=== PATIENT | female | born 2000 | race Caucasian/White ===

== ENCOUNTER 2018-11-25 08:37 | Emergency (ER) | payer BC ==
--- NOTE | 2018-11-25 08:44 | ER Report ---
History and Physical Time Seen By MD: 08:44 HPI/ROS CHIEF COMPLAINT: Lower abdominal pain HISTORY OF PRESENT ILLNESS: Patient is a 18-year-old female here with complaints of lower abdominal pain which started yesterday evening. Patient reports waking up with severe bilateral and suprapubic lower abdominal pain which has been sharp and stabbing, constant since this morning. Patient denies prior history of abdominal surgeries, fevers, chills. She has been able to keep down food and fluids. Patient does have some nausea at time of evaluation. Patient is hemodynamically stable at time of evaluation. She is markedly tender in the lower abdominal distribution. No rebound or guarding present. REVIEW OF SYSTEMS: Constitutional: No fever, no chills. Eyes: No discharge. ENT: No sore throat. Cardiovascular: No chest pain, no palpitations. Respiratory: No cough, no shortness of breath. Gastrointestinal: + lower abdominal pain, no vomiting, + nausea. Genitourinary: No hematuria, dysuria or discharge Musculoskeletal: No back pain. Skin: No rashes. Neurological: No headache. Allergies: Coded Allergies: No Known Drug Allergies (Unverified , 11/25/18) Home Meds Active Scripts Ondansetron 4 Mg Odt (ONDANSETRON 4 MG ODT) 4 Mg Tab.rapdis, 4 MG PO Q4-6H PRN for NAUSEA, #30 TAB Prov:KEE GOODE DO 11/25/18 Reported Medications Etonogestrel (NEXPLANON) 68 Mg Implant, 68 MG SQ DIRECTED, IMPLANT 11/25/18 Constitutional Vital Sign - Last 24 Hours 11/25/18 11/25/18 11/25/18 11/25/18 08:41 09:00 09:04 09:15 Temp 98.1 Pulse 100 83 Resp 24 B/P (MAP) 136/100 ???/??? (5365) 115/60 (78) 110/77 (88) Pulse Ox 97 99 O2 Delivery Room Air 11/25/18 11/25/18 11/25/18 11/25/18 09:30 10:07 10:15 10:30 Pulse 78 B/P (MAP) 111/71 (84) 116/72 (87) 115/68 (84) 102/65 (77) Pulse Ox 94 11/25/18 11/25/18 11/25/18 5/9/19 10:45 11:00 11:15 11:25 Pulse 73 B/P (MAP) 95/65 (75) 108/61 (77) 111/63 (79) Pulse Ox 97 O2 Delivery Room Air Physical Exam General Appearance: The patient is alert, has no immediate need for airway protection and no signs of toxicity. Uncomfortable appearing, tearful Eyes: Pupils equal and round no pallor or injection. ENT, Mouth: Mucous membranes are moist. Respiratory: There are no retractions, lungs are clear to auscultation. Cardiovascular: Regular rate and rhythm. Gastrointestinal: + lower abdominal tenderness on palpation, no rebound or guarding or distension. Neurological: No focal findings Skin: Warm and dry, no rashes. Musculoskeletal: Neck is supple non tender. Extremities are nontender, nonswollen and have full range of motion. DIFFERENTIAL DIAGNOSIS: After history and physical exam differential diagnosis was considered for abdominal pain including but not limited to appendicitis, cholecystitis, gastritis and urinary tract infection. Medical Decision Making Data Points Result Diagram: 11/25/18 0845 11/25/18 0845 Laboratory Hematology Test 11/25/18 08:45 11/25/18 08:52 Red Blood Count 5.16 M/uL (4.17-5.56) Mean Corpuscular Volume 86.7 fL (80.0-96.0) Mean Corpuscular Hemoglobin 28.9 pg (26.0-33.0) Mean Corpuscular Hemoglobin Concent 33.3 g/dL (32.0-36.0) Red Cell Distribution Width 13.6 % (11.5-14.5) Mean Platelet Volume 8.5 fL (7.2-11.1) Neutrophils (%) (Auto) 53.0 % (39.4-72.5) Lymphocytes (%) (Auto) 31.7 % (17.6-49.6) Monocytes (%) (Auto) 7.9 % (4.1-12.4) Eosinophils (%) (Auto) 7.1 % (0.4-6.7) Basophils (%) (Auto) 0.3 % (0.3-1.4) Nucleated RBC Relative Count (auto) 0.0 /100WBC Neutrophils # (Auto) 6.1 K/uL (2.0-7.4) Lymphocytes # (Auto) 3.6 K/uL (1.3-3.6) Monocytes # (Auto) 0.9 K/uL (0.3-1.0) Eosinophils # (Auto) 0.8 K/uL (0.0-0.5) Basophils # (Auto) 0.0 K/uL (0.0-0.1) Nucleated RBC Absolute Count (auto) 0.00 K/uL Sodium Level 138 mmol/L (137-145) Potassium Level 4.0 mmol/L (3.5-5.0) Chloride Level 105 mmol/L (98-107) Carbon Dioxide Level 23 mmol/L (22-31) Blood Urea Nitrogen 17 mg/dl (7-18) Creatinine 0.80 mg/dl (0.52-1.04) Glomerular Filtration Rate Calc > 60.0 Random Glucose 95 mg/dl (75-110) Calcium Level 9.3 mg/dl (8.4-10.2) Total Bilirubin 0.4 mg/dl (0.2-1.3) Aspartate Amino Transf (AST/SGOT) 39 U/L (0-35) Alanine Aminotransferase (ALT/SGPT) 28 U/L (0-56) Alkaline Phosphatase 63 U/L (0-126) C-Reactive Protein < 0.5 mg/dl (<1.0) Total Protein 6.7 g/dl (6.3-8.2) Albumin 4.2 g/dl (3.5-5.0) Lipase 199 U/L (23-300) Human Chorionic Gonadotropin, Qual Negative (NEGATIVE) Urine Color Yellow Urine Clarity Slightly-cloudy Urine pH 5.0 pH (4.8-9.5) Urine Specific [place] 1.026 Urine Protein Negative mg/dL (NEGATIVE) Urine Glucose (UA) Negative mg/dL (NEGATIVE) Urine Ketones Negative mg/dL (NEGATIVE) Urine Blood Negative (NEGATIVE) Urine Nitrite Negative (NEGATIVE) Urine Bilirubin Negative (NEGATIVE) Urine Urobilinogen Negative mg/dL (0.2-1.9) Urine Leukocyte Esterase Negative (NEGATIVE) Urine RBC 2 /HPF (0-2/HPF) Urine WBC 1 /HPF (0-5/HPF) Urine Squamous Epithelial Cells Many /LPF (</=FEW) Urine Bacteria Few /HPF (NONE-FEW) Urine Mucus Few /HPF (NONE-FEW) Chemistry Test 11/25/18 08:45 11/25/18 08:52 White Blood Count 11.4 k/uL (4.5-11.0) Red Blood Count 5.16 M/uL (4.17-5.56) Hemoglobin 14.9 g/dL (12.0-16.0) Hematocrit 44.7 % (34.0-47.0) Mean Corpuscular Volume 86.7 fL (80.0-96.0) Mean Corpuscular Hemoglobin 28.9 pg (26.0-33.0) Mean Corpuscular Hemoglobin Concent 33.3 g/dL (32.0-36.0) Red Cell Distribution Width 13.6 % (11.5-14.5) Platelet Count 342 K/uL (150-450) Mean Platelet Volume 8.5 fL (7.2-11.1) Neutrophils (%) (Auto) 53.0 % (39.4-72.5) Lymphocytes (%) (Auto) 31.7 % (17.6-49.6) Monocytes (%) (Auto) 7.9 % (4.1-12.4) Eosinophils (%) (Auto) 7.1 % (0.4-6.7) Basophils (%) (Auto) 0.3 % (0.3-1.4) Nucleated RBC Relative Count (auto) 0.0 /100WBC Neutrophils # (Auto) 6.1 K/uL (2.0-7.4) Lymphocytes # (Auto) 3.6 K/uL (1.3-3.6) Monocytes # (Auto) 0.9 K/uL (0.3-1.0) Eosinophils # (Auto) 0.8 K/uL (0.0-0.5) Basophils # (Auto) 0.0 K/uL (0.0-0.1) Nucleated RBC Absolute Count (auto) 0.00 K/uL Glomerular Filtration Rate Calc > 60.0 Calcium Level 9.3 mg/dl (8.4-10.2) Total Bilirubin 0.4 mg/dl (0.2-1.3) Aspartate Amino Transf (AST/SGOT) 39 U/L (0-35) Alanine Aminotransferase (ALT/SGPT) 28 U/L (0-56) Alkaline Phosphatase 63 U/L (0-126) C-Reactive Protein < 0.5 mg/dl (<1.0) Total Protein 6.7 g/dl (6.3-8.2) Albumin 4.2 g/dl (3.5-5.0) Lipase 199 U/L (23-300) Human Chorionic Gonadotropin, Qual Negative (NEGATIVE) Urine Color Yellow Urine Clarity Slightly-cloudy Urine pH 5.0 pH (4.8-9.5) Urine Specific [place] 1.026 Urine Protein Negative mg/dL (NEGATIVE) Urine Glucose (UA) Negative mg/dL (NEGATIVE) Urine Ketones Negative mg/dL (NEGATIVE) Urine Blood Negative (NEGATIVE) Urine Nitrite Negative (NEGATIVE) Urine Bilirubin Negative (NEGATIVE) Urine Urobilinogen Negative mg/dL (0.2-1.9) Urine Leukocyte Esterase Negative (NEGATIVE) Urine RBC 2 /HPF (0-2/HPF) Urine WBC 1 /HPF (0-5/HPF) Urine Squamous Epithelial Cells Many /LPF (</=FEW) Urine Bacteria Few /HPF (NONE-FEW) Urine Mucus Few /HPF (NONE-FEW) Urinalysis Test 11/25/18 08:52 Urine Color Yellow Urine Clarity Slightly-cloudy Urine pH 5.0 pH (4.8-9.5) Urine Specific [place] 1.026 Urine Protein Negative mg/dL (NEGATIVE) Urine Glucose (UA) Negative mg/dL (NEGATIVE) Urine Ketones Negative mg/dL (NEGATIVE) Urine Blood Negative (NEGATIVE) Urine Nitrite Negative (NEGATIVE) Urine Bilirubin Negative (NEGATIVE) Urine Urobilinogen Negative mg/dL (0.2-1.9) Urine Leukocyte Esterase Negative (NEGATIVE) Urine RBC 2 /HPF (0-2/HPF) Urine WBC 1 /HPF (0-5/HPF) Urine Squamous Epithelial Cells Many /LPF (</=FEW) Urine Bacteria Few /HPF (NONE-FEW) Urine Mucus Few /HPF (NONE-FEW) EKG/Imaging Imaging Please see radiology ultrasound reports ED Course/Re-evaluation ED Course Patient is a 18-year-old female here with complaints of lower abdominal pain since yesterday evening, waking the patient up this morning with sharp stabbing pain. Labs were unremarkable with a mild leukocytosis of 11,000, beta hCG negative, CRP negative, urinalysis noninfectious. Ultrasound of the right lower quadrant identified a normal-appearing appendix, transvaginal non-OB ultrasound did identify a free fluid in the right pelvis, right ovarian cyst consistent with ovarian cyst rupture likely being the cause of her pain. Patient was given Toradol and Zofran for symptomatic relief. Patient was given scripts for Zofran and advised to take naproxen as needed for pain control. Was PCP follow-up recommended. OB follow-up recommended if pain persists. Return precautions were provided. Patient was updated regarding these findings. Decision to Disposition Date: November 25, 2018 Decision to Disposition Time: 10:44 Depart Departure Latest Vital Signs Vital Signs Date Time Temp Pulse Resp B/P (MAP) Pulse Ox O2 Delivery O2 Flow Rate FiO2 11/25/18 11:25 73 97 Room Air 11/25/18 11:15 111/63 (79) 11/25/18 08:41 98.1 24 Impression: Primary Impression: Abdominal pain Additional Impression: Ovarian cyst Condition: Improved Disposition: HOME OR SELF-CARE New Scripts Ondansetron 4 Mg Odt (ONDANSETRON 4 MG ODT) 4 Mg Tab.rapdis 4 MG PO Q4-6H PRN for NAUSEA, #30 TAB Prov: KEE GOODE DO 11/25/18 Patient Instructions: Abdominal Pain (ED) Additional Instructions: Please drink plenty of water. You may take Zofran 1 tablet every 4-6 hours as needed for nausea and vomiting. You may take up to 500 mg of naproxen twice daily as needed for pain control. Please follow-up with your family doctor. Please return promptly if you develop worsening pain, fevers, blood in the stools or urine, inability to keep down food or fluids. Problem Qualifiers KEE GOODE DO November 25, 2018 08:44
[2018-11-25] MEDS ORDERED: ETON68IM SQ (08:45)
[2018-11-25] MEDS ORDERED: KETOROLAC 30 MG/ML VIAL IVP ONE (09:00)
[2018-11-25] MEDS ORDERED: ONDANSETRON 4 MG/2 ML VIAL IVP ONE (09:00)
[2018-11-25 09:07] LABS: PLATELET COUNT, AUTOMATED 342 K/uL (150-450)
[2018-11-25] MEDS ORDERED: ONDA4TAB9 PO (10:47)
--- NOTE | 2018-11-25 11:01 | RADIOLOGY IMAGING REPORT ---
FACILITY: [facility] [place] PATIENT NAME: Syl Odell : 2000 MR: [id number] V: [id number] EXAM DATE: ORDERING PHYSICIAN: KEE GOODE TECHNOLOGIST: Location: [facility] Patient: Syl Odell : 2000 Visit/Account:[id number] Date of Sevice: 11/25/2018 RIGHT LOWER QUADRANT, TRANSVAGINAL NON-OB INDICATION: Pain, Lower abd pain COMPARISON: None Available FINDINGS: Uterus measures 7.6 x 4.5 x 5.1 cm and is homogeneous in echotexture. No mass is identified. Double wall endometrial stripe measures 5.4 mm and is homogeneous There is a moderate amount of free fluid in the cul-de-sac. Urinary bladder is empty. Pelvic vessels appear unremarkable on this examination. Right ovary measures 4.0 x 1.8 x 3.1 cm and shows normal blood flow and contains an oval unilocular c yst measuring 3.2 cm Left ovary measures 3.0 x 1.6 x 3.8 cm and shows normal blood flow and contains a dominant follicle Within the right lower quadrant, the appendix is identified and is normal in appearance measuring 6 m m. The appendix is compressible with normal vascularity. No pericecal fluid is identified. IMPRESSION: 1. There is a 3.2 cm right ovarian cyst with moderate amount of fluid within the pelvis, question ru ptured cyst 2. Normal-appearing appendix Report Dictated By: Conor Weir at 11/25/2018 10:53 AM Report E-Signed By: Conor Weir at 11/25/2018 10:57 AM WSN:[email or web address]
--- NOTE | 2018-11-25 11:02 | RADIOLOGY IMAGING REPORT ---
FACILITY: [facility] PATIENT NAME: Syl Odell : 2000 MR: [id number] V: [id number] EXAM DATE: ORDERING PHYSICIAN: KEE GOODE TECHNOLOGIST: [place] [facility] [place] Patient: Syl Odell : 2000 Visit/Account:[id number] Date of Sevice: 11/25/2018 RIGHT LOWER QUADRANT, TRANSVAGINAL NON-OB INDICATION: Pain, Lower abd pain COMPARISON: None Available FINDINGS: Uterus measures 7.6 x 4.5 x 5.1 cm and is homogeneous in echotexture. No mass is identified. Double wall endometrial stripe measures 5.4 mm and is homogeneous There is a moderate amount of free fluid in the cul-de-sac. Urinary bladder is empty. Pelvic vessels appear unremarkable on this examination. Right ovary measures 4.0 x 1.8 x 3.1 cm and shows normal blood flow and contains an oval unilocular c yst measuring 3.2 cm Left ovary measures 3.0 x 1.6 x 3.8 cm and shows normal blood flow and contains a dominant follicle Within the right lower quadrant, the appendix is identified and is normal in appearance measuring 6 m m. The appendix is compressible with normal vascularity. No pericecal fluid is identified. IMPRESSION: 1. There is a 3.2 cm right ovarian cyst with moderate amount of fluid within the pelvis, question ru ptured cyst 2. Normal-appearing appendix Report Dictated By: Conor Weir at 11/25/2018 10:53 AM Report E-Signed By: Conor Weir at 11/25/2018 10:57 AM WSN:[email or web address]
[2018-11-25 11:15] VITALS: BP 111/63
== END 2018-11-25 11:29 | disposition home or self-care (01) ==
LOC: ER 08:59
DX: N83.201 Unspecified ovarian cyst, right side (principal); R10.30 Lower abdominal pain, unspecified
CPT/HCPCS: 76705; 76830; 81001; 83690; 84703; 85025; 86140; 96374; 96375; 99284; J1885; J2405; 82040; 82247; 82310; 82374; 82435; 82565; 82947; 84075; 84132; 84155; 84295; 84450; 84460; 84520